=== PATIENT | female | born 1960 | race Caucasian/White ===

== ENCOUNTER 2023-07-04 16:50 | Emergency (ER) | payer OTHER, SELFPAY ==
[2023-07-04 16:54] VITALS: BP 214/119
[2023-07-04 17:17] LABS: % Basophils 0.4 % (0-2); % Eosinophils 1.8 % (0-6); % Immature Granulocytes 0.4 % (0-0.5); % Lymphocytes 28.8 % (20.5-51.1); % Monocytes 8.3 % (1.7-9.3); % Neutrophils 60.3 % (42.2-75.2); Absolute Basophils 0.1 10^3/uL (0-0.2); Absolute Eosinophils 0.2 10^3/uL (0-0.7); Absolute Immature Granulocytes 0.1 10^3/uL (0-0.05); Absolute Lymphocytes 3.6 10^3/uL (1.2-3.4); Absolute Neutrophils 7.5 10^3/uL (1.4-6.5); Hematocrit 43.7 % (37.0-47.0); Hemoglobin 15.2 g/dL (12.0-16.0); Mean Corp Hgb Conc. 34.8 g/dL (33.0-37.0); Mean Platelet Volume 10.2 fL (7.4-10.4); Nucleated Red Blood Cells % 0 %; Platelet Count 270 10^3/uL (130-400); Red Blood Cell Count 4.75 10^6/uL (4.20-5.40); Red Cell Dist. Width 11.3 % (11.5-14.5); Urine Albumin Negative (Neg - Trace); Urine Bilirubin Negative (Negative); Urine Character Clear (Clear); Urine Color Yellow; Urine Glucose Negative (Negative); Urine Ketone Negative (Negative); Urine Leukocyte Negative (Negative); Urine Nitrite Negative (Negative); Urine Occult Blood Negative (Negative); Urine Urobilinogen Negative (Neg - 1+); White Blood Cell Count 12.5 10^3/uL (4.8-10.8)
[2023-07-04 17:33] LABS: ALT (SGPT) 20 U/L (0-35); AST (SGOT) 22 U/L (14-36); Albumin 4.5 g/dl (3.5-5.0); Alkaline Phosphatase 80 U/L (38-126); Blood Urea Nitrogen 16 mg/dl (7-17); Calcium 9.6 mg/dl (8.4-10.2); Carbon Dioxide 28 mmol/L (22-30); Chloride 94 mmol/L (98-107); Glucose 110 mg/dl (70-99); Potassium 3.7 mmol/L (3.5-5.1); Sodium 130 mmol/L (135-145); Total Bilirubin 0.8 mg/dl (0.2-1.3); Total Protein 7.4 g/dl (6.3-8.2); eGFR > 60.00
[2023-07-04 17:34] LABS: Lipase 92 U/L (23-300)
[2023-07-04 19:24] VITALS: BP 198/104
--- NOTE | 2023-07-04 19:45 | ED.GENMED ---
History of Present Illness
General
Chief Complaint: Flank Pain
Source: patient
Exam Limitations: none
Time Seen by Provider: 07/04/23 19:22
Travel History
Have you had any contact with someone who has COVID-19?: No
Do you have any symptoms of coronavirus? Fever > 100 degrees, chills, cough, shortness of breath, sore throat, loss of taste or smell, muscle aches, or headache?: No
History of Present Illness
History of Present Illness:
This is a 63 year old female that comes in with c/o abd pain. States that she started with right flank pain. Then she got pain in the bladder area with urination and thought she had a UTI. Patient went to and was told that her urine was normal.
States that her abd know feels solid and heavy. States that she has lower back pain, pain on both sided and is nauseated. States that she has also continued with the right flank pain. States that this all started a week ago. States that when she
urinated she feels like she has to go more as she didn't empty her bladder. Denies any fever, chills, chest pain, SOB, vomiting, diarrhea, headache, dizziness, urinary burning.
Past History
Past History
ED Past Medical History: HTN; Negative Asthma, Hypercholesterolemia or NIDDM
ED Past Surgical History: (X2)
Social History
Tobacco: Smoker
Alcohol: Daily (Light beer 2-3)
Personal:
Living: with family
Review of Systems
Review of Systems
All Other Systems: ROS reviewed and negative except as documented in HPI and ROS
Constitutional: Reports no symptoms; Denies fever or chills
EENT: Reports no symptoms
Respiratory: Reports no symptoms
Cardiac: Reports no symptoms; Denies chest pain
ABD/GI: Reports abdominal pain and nausea; Denies vomiting or diarrhea
: Reports other (Feels like she is not emptying her bladder after she has urinated); Denies dysuria, frequency or urgency
Musculoskeletal: Reports no symptoms
Skin: Reports no symptoms
Neurological: Reports no symptoms; Denies dizzy or headache
Psychiatric: Reports no symptoms
Phy Exam
General Physical Exam
General Presentation: no apparent distress
General age: appears stated age
General Skin: warm and dry
General Habitus: normal
General Mental: alert
General Hydration: appears well hydrated
ENT Exam
ENT Exam: TM's normal, pharynx normal and neck supple
Eye Exam
Eye Exam: EOMI
Cardiovascular Exam
Cardiovascular Exam: regular rate/rhythm, no edema, no murmur and normal peripheral pulses
Pulmonary Exam
Pulmonary Exam: lungs clear, no respiratory distress, no rales, chest non tender, no crackles, no rhonchi, no wheezing and no cough
Gastrointestinal Exam
Gastrointestinal Exam: normal bowel sounds, soft, no organomegaly, no pulsatile mass, non distended, tender (Slight right sided tenderness with palpation) and other (Obese)
Musculoskeletal Exam
Musculoskeletal Exam: full ROM and no edema
Skin Exam
Skin Exam: normal color, warm/dry, no rash and no petechia
Psychiatric Exam
Psychiatric Exam: normal mood/affect
Course
Orders/Labs/Results
Orders:
Orders
07/04/23 17:08
Complete Blood Count/With Diff Urgent
Comprehensive Metabolic Panel Urgent
Lipase Urgent
Urinalysis Reflex To Culture Urgent
Date Specimen was Collected: 07/04/23
Time Specimen was Collected: 17:00
07/04/23 19:44
CT Abd/pelvis W Iv Cont Urgent
Comment:
Reason For Exam: Generalized pain. Right flank pain,
0.9% Sodium Chloride 500 ml [Nss] 500 ml IV BOLUS
Ketorolac [Toradol] 30 mg IV NOW STA
07/04/23 19:49
Bladder Scan- Treatment ONCE
Comment: After patient urinates
Abnormal Lab Results
07/04/23
17:08
WBC 12.5 H 10^3/uL
(4.8-10.8)
MCH 32.0 H pg
(27.0-31.0)
RDW 11.3 L %
(11.5-14.5)
Abs Immat Gran (auto) 0.1 H 10^3/uL
(0-0.05)
Absolute Neuts (auto) 7.5 H 10^3/uL
(1.4-6.5)
Absolute Lymphs (auto) 3.6 H 10^3/uL
(1.2-3.4)
Absolute Monos (auto) 1.0 H 10^3/uL
(0.1-0.6)
Sodium 130 L mmol/L
(135-145)
Chloride 94 L mmol/L
(98-107)
Glucose 110 H mg/dl
(70-99)
07/04/23 17:08
07/04/23 17:08
Leukocytosis, Sodium slightly low. Chloride low. Glucose nonfasting. Lipase normal at 92, Urine negative for infection.
Vital Signs
Initial and Last Documented VS:
Initial Vital Signs
Temp Pulse Resp BP Pulse Ox
97.7 F 68 18 214/119 96
07/04/23 16:54 07/04/23 16:54 07/04/23 16:54 07/04/23 16:54 07/04/23 16:54
Last Documented Vital Signs
Temp Pulse Resp BP Pulse Ox
97.7 F 68 18 198/104 95
07/04/23 16:54 07/04/23 16:54 07/04/23 16:54 07/04/23 19:24 07/04/23 19:45
MDM/Problems Addressed
Differential Diagnosis Includes:
Renal calculus, Diverticulitis,
MDM/Problems Addressed:
This is a 63 year old female that comes in with c/o abd pain. States that it started with right flank pain about a week ago. Know she feels that she has low back pain, nausea and her abd feels heavy and solid.
Will get labs CT scan.
Back into see patient. Explained that her CT is negative for any acute disease process. There is moderate amount of stool in the abd. Explained to patient that her pain may be coming from her back as the nerves wrap around to the abd. Patient can
use Tylenol and Naproxen for pain. Ice or heat, follow up with the family doctor. Patient can use Miralax at home for the stool burden. Patient to return with any concerns.
Chronic conditions affecting care:
NA
Acute Exacerbation and/or Progression of Chronic Illness:
NA
*Radiology
Radiology exam reviewed: radiology read reviewed (CT-NO acute pathology of the abd or pelvis identified. Diverticulosis. No evidence of acute diverticulitis. Moderate fecal material in the colon. )
*Pulse Oximetry
Patient hypoxic: no
*EKG
Interpreted by ED Provider?: NA
Rate: EKG- N/A
*Hospital Receptionist Interpretation
Rate: Hospital Receptionist- N/A
*Critical Care Note
Total Time (30-74mins, 75-104mins- exclusive of procedures): Not Applicable
ED Attending Note
-
Portions of this chart may have been created with voice recognition software.� Occasional wrong word or��sound alike� substitutions may have occurred due to the inherent limitations of voice recognition software.
Discharge Plan
Departure
Patient Disposition: Home (Routine Discharge)
Date of Disposition: 07/04/23
Time of Disposition: 21:39
Patient with high blood pressure during this ER visit?: Yes
Condition: Good
Covid-19: Not Applicable
Discharge Problem:
Abdominal pain, Constipation
Instructions: Flank Pain (DC), Constipation, Adult ED, BLOOD PRESSURE
Referrals:
Jaymie Arellano, [Family Provider] - Follow up in 2-3 days
Activity Restrictions/Additional Instructions:
As discussed, your CT is negative for any acute process. You pain may be due to your back as the nerves wrap around to the abd. Please rest, use Tylenol 1000mg every 6 hours for pain and Naproxen 500mg twice daily for the next 3 days. Heat or ice
which ever makes you feel better. Follow up with the family doctor for recheck. Use your Miralax at home to help with the stool burden. IF YOU HAVE INCREASED OR CHANGING PAIN, OR YOU HAVE ANY OTHER CONCERNS PLEASE RETURN TO THE EMERGENCY ROOM.
Interventions
Interventions:
*Risk Screen - Suicide Last Done: 07/04/23 16:54
*General Assessment Last Done: 07/04/23 16:54
*Neglect/Abuse Screening Last Done: 07/04/23 16:54
ED- Fall Risk Assessment Last Done: 07/04/23 19:30
CB-Vjyxrz-Jwvgetfukn Assessment Last Done: 07/04/23 19:30
Discharge Date and Time
Print Language: [id number]
[2023-07-04] MEDS: TORADOL 30 MG IV (20:07)
[2023-07-04] MEDS: NSS 500 IV (20:08)
[2023-07-04 21:44] VITALS: BP 186/103
== END 2023-07-04 22:06 | disposition home or self-care (01) ==
LOC: EMR 16:50
PROVIDERS: Emergency Medicine; EMERGENCY PHYSICIAN Emergency Medicine; FAMILY PHYSICIAN Family Medicine
DX: K59.00 Constipation, unspecified (principal); R10.9 Unspecified abdominal pain; M54.50 Low back pain, unspecified; R11.0 Nausea; I10 Essential (primary) hypertension; F17.200 Nicotine dependence, unspecified, uncomplicated
CPT/HCPCS: 99285; 96361; 96374; 51798; 74177; 80053; 81003; 83690; 85025; Q9967